=== PATIENT | male | born 1985 | race Caucasian/White ===

== ENCOUNTER 2019-10-13 14:47 | Emergency (ER) | payer SELFPAY ==
[2019-10-13] VITALS (9 sets, daily range): BP systolic 115–152; BP diastolic 68–97
[~2019-10-13] VITALS: Ht 195.6 cm; Wt 79.4 kg
[2019-10-13] MEDS ORDERED: Morphine Sulfate 2mg/ml Inj(IV/IM USE ONLY) IVP ONE (15:15)
--- NOTE | 2019-10-13 15:15 | NUR ---
ED Nurse Note: Patient walked into ED from home d/t dislocated left shoulder while swimming. Patient has hx of multiple dislocations of same shoulder. Currently pain is 7/10, acute ache. Patient given pillow to rest elbow and support arm. Patient Axo x 4, will give pain medication as ordered.
--- NOTE | 2019-10-13 15:18 | Emergency Room Report ---
History of Present Illness General Chief Complaint: Upper Extremity Injury Source: Patient Present Illness HPI Disclaimer: Please note that this report is being documented using [employer] technology. This can lead to erroneous entry secondary to incorrect interpretation by the dictating instrument. HPI: 34-year-old male with history of recurrent left shoulder dislocation presents for evaluation of deformity of the left shoulder. He was swinging a swimming pool diving and when his arm got caught. Noted immediate pain in the area and a palpable deformity. States this is consistent with his prior dislocations. Is dislocated approximately 6 times the last of which was 3 years ago. Denies numbness or tingling. Full use of the left extremity as well as the elbow though pain limits the range of motion. No other injury sustained. No other complaints from patient at this time. Has no history of operative repair on that shoulder. PMH: Recurrent shoulder dislocation PSH: Denied Allergies: Denied Social Hx: Denied Allergies: Coded Allergies: No Known Allergies (Unverified , 10/13/19) COVID-19 Screening Contact w/high risk pt: No Experienced COVID-19 symptoms?: No COVID-19 Testing performed [employer]: No Nursing Documentation-PMH Hx Cardiac Problems: Yes - WPW Review of Systems All Other Systems: negative except mentioned in HPI Physical Exam Vital Signs Date Time Temp Pulse Resp B/P (MAP) Pulse Ox O2 Delivery O2 Flow Rate FiO2 10/13/19 15:01 98.8 95 20 152/97 (115) 96 Room Air General: Awake and alert, no acute distress HEENT: NC/AT. EOMI. Resp: Normal work of breathing Skin: Intact. No abrasions, laceration or rash over the exposed skin MSK: Normal tone and bulk. Holding his left arm in flexion and internal rotation. There is a palpable step-off from the clavicle in the left shoulder. Sensation intact over the deltoid. Neuro: Awake and alert. Mentating appropriately Procedures Joint Reduction Joint Reduction : Consent: Written Joint Reduction Site: shoulder (L) Procedural Sedation: Yes Reduction Attempts: One Pre-Procedure NV Exam: Yes Post-Procedure NV Exam: Yes Post Joint Reduction Film: joint reduced Patient Tolerated: Well Complications: None Procedural Sedation Consent: Written Pre-Sedation Assessment: Elective Airway Assessment (Malampati): I Heart: normal Lungs: normal Procedures/Plans: Closed Reduction Plan for Moderate Sedation: Propofol - 200 mg ASA Score: I Procedure Narrative Used a total of 200 mg propofol to achieve moderate sedation for closed reduction of left shoulder. He is requesting increments of 80 mg, 40 mg, 40 mg , 40 mg. Patient tolerated procedure well had stable vital signs throughout. No complications. He was returned to his neurologic baseline following reduction. No vomiting, no respiratory depression, no apnea, no hypoxia, no hypotension noted. Start Time: 16:28 End Time: 16:38 Post-Sedation Assessment Total time 10 minutes. Communication: No Apparent Limitation Mental Status: Awake Respiration: Unlabored Nausea: NO Vomiting: NO Medical Decision Making Diagnostic Impression: Primary Impression: Shoulder dislocation ER Course 34-year-old male presents for suspected dislocation of left shoulder. X-ray confirms anterior dislocation without fracture. Attempted conservative maneuvers including injection of lidocaine, IM pain medication, scapular massage , fares technique however the patient was unable to be reduced. He was sedated using propofol and using traction countertraction the patient's left shoulder was reduced in anatomic position. Placed in immobilizer and postreduction x- ray obtained confirming reduction. He is returned to his neurologic baseline. Awake and alert ambulating without difficulty. Patient be discharged to follow- up with his orthopedic surgeon [place]. Discussed reasons to return to ED. He understands and agrees with the treatment plan. His friend is here to take him home. Other X-Ray Diagnostic Results Other X-Ray Diagnostic Results #1: X-Ray ordered: Left shoulder # of Views/Limited Vs Complete: Complete Indication: Pain EP Interpretation: Yes Interpretation: no soft tissue swelling, no fractures, other - Anterior shoulder dislocation Impression: Other - Anterior shoulder dislocation without fracture Electronically Signed by: Electronically signed by Dr. Michi Szymanski Other X-Ray Diagnostic Results #2: X-Ray ordered: Left shoulder # of Views/Limited Vs Complete: Complete Indication: Pain EP Interpretation: Yes Interpretation: no dislocation, no soft tissue swelling, no fractures Impression: Other - Successful reduction of left anterior shoulder dislocation. Electronically Signed by: Electronically signed by Dr. Michi Szymanski Last Vital Signs Date Time Temp Pulse Resp B/P (MAP) Pulse Ox O2 Delivery O2 Flow Rate FiO2 10/13/19 15:01 98.8 95 20 152/97 (115) 96 Room Air Disposition: HOME, SELF-CARE Condition: Stable Scripts Hydrocodone Bit/Acetaminophen 7.5-325* (NORCO 7.5-325*) 1 Each Tablet 1 TAB ORAL Q6H PRN for For Pain, #12 TAB 0 Refills Prov: Michi Szymanski MD 10/13/19 Michi Szymanski MD Oct 13, 2019 15:18
--- NOTE | 2019-10-13 15:36 | NUR ---
ED Nurse Note: Patient taken to Xray
[2019-10-13] MEDS ORDERED: Lidocaine 1% Plain 30 ml INJ ONE ×2 (15:55→16:00)
--- NOTE | 2019-10-13 16:15 | NUR ---
EMERGENCY CONTACT: Giorgio (brother): [phone]
--- NOTE | 2019-10-13 16:20 | NUR ---
ED Nurse Note: Informed consent obtained. Witnessed by RN.
--- NOTE | 2019-10-13 16:23 | Diagnostic Imaging Report ---
EXAM: XR Left Shoulder Complete, 2 or More Views CLINICAL HISTORY: INJ TECHNIQUE: Two or more views of the left shoulder. COMPARISON: No relevant prior studies available. FINDINGS: Bones/joints: There is an anterior/subcoracoid dislocation of the left glenohumeral joint. Suspected Hill-Sachs deformity of the humerus. There could also be an acute bony Bankart lesion to the anterior rim of the glenoid. Normal alignment of the left acromioclavicular joint.. Soft tissues: Unremarkable. IMPRESSION: There is an anterior/subcoracoid dislocation of the left glenohumeral joint. Suspected Hill-Sachs deformity of the humerus. There could also be an acute bony Bankart lesion to the anterior rim of the glenoid.
--- NOTE | 2019-10-13 16:27 | NUR ---
ED Nurse Note: Moderation sedation started. Pt placed on case monitor. Pt AAOX4, verbally responsive. No SOB. Pt placed on 2L via nc. ERMD, 2 RN and 2 RT at bedside.
--- NOTE | 2019-10-13 16:28 | NUR ---
ED Nurse Note: Propofol 80mg IVP was given by CHAPARRO.
--- NOTE | 2019-10-13 16:29 | NUR ---
ED Nurse Note: Propofol 40mg IVP was given by CHAPARRO.
--- NOTE | 2019-10-13 16:32 | NUR ---
ED Nurse Note: Propofol 40mg IVP was given by CHAPARRO.
--- NOTE | 2019-10-13 16:38 | NUR ---
ED Nurse Note: Propofol 40mg IVP was given by CHAPARRO.
[2019-10-13] MEDS ORDERED: NORCO 7.5-3251 EACH ORAL (16:48)
--- NOTE | 2019-10-13 16:58 | NUR ---
ED Nurse Note: Pt AAOx4, verbally responsive. No SOB, on room air.
--- NOTE | 2019-10-13 17:51 | Diagnostic Imaging Report ---
EXAM: XR Left Shoulder Complete, 2 or More Views CLINICAL HISTORY: INJ TECHNIQUE: Two or more views of the left shoulder. COMPARISON: No relevant prior studies available. FINDINGS/IMPRESSION: Interval reduction of previously noted left glenohumeral dislocation.
--- NOTE | 2019-10-13 18:06 | NUR ---
ED Nurse Note: Pt cleared byERMD for discharge. DC instructions/prescription was given and explained to pt and verbalized understanding of teachings. All medical deviecs such as ID band and IV line removed. Pt is AAO x4, ambulatory and left with all personal belongings. P/u by his brother.
[2019-10-14] MEDS ORDERED: NORCO 7.5-3251 EACH ORAL (18:28)
== END 2019-10-13 18:06 | disposition home or self-care (01) ==
LOC: EMR 17:48
DX: S43.005A Unspecified dislocation of left shoulder joint, initial encounter (principal); Y93.11 Activity, swimming
CPT/HCPCS: 23650; 73030; 99283; J2001; J2270; J2704